=== PATIENT | female | born 1965 | race African-American/Black ===

== ENCOUNTER 2019-01-12 22:12 | Emergency (ER) | payer OTHER, MEDICAID ==
[~2019-01-12] VITALS: Ht 167.6 cm; Wt 73.0 kg
[2019-01-13] MEDS ORDERED: IBUPROFEN 600MG TABLET PO ONE (00:15)
[2019-01-13 01:20] VITALS: BP 155/85
== END 2019-01-13 01:20 | disposition home or self-care (01) ==
LOC: ER 22:12
DX: M25.532 Pain in left wrist (principal)
CPT/HCPCS: 29125; 73110; 99283

== ENCOUNTER 2019-03-07 23:29 | Emergency (ER) | payer OTHER, MEDICAID ==
[~2019-03-07] VITALS: Ht 172.7 cm; Wt 68.0 kg
[2019-03-08] MEDS ORDERED: SODIUM CHLORIDE 0.9% 1,000 ML IV ONE
[2019-03-08 00:35] LABS: CLARITY URINE CLOUDY (CLEAR); COLOR URINE YELLOW (YELLOW); KETONES URINE NEGATIVE (NEGATIVE); LEUKOCYTE ESTERASE URINE NEGATIVE (NEGATIVE); NITRITE URINE NEGATIVE (NEGATIVE); OCCULT BLOOD URINE NEGATIVE (NEGATIVE); PROTEIN URINE 1+ (NEGATIVE); SPECIFIC GRAVITY URINE 1.031 (1.005-1.030); UROBILINOGEN URINE 0.2 E.U./dL (0.2-1.0)
[2019-03-08 00:54] LABS: *BARBITURATES SCREEN URINE NEGATIVE (NEGATIVE)
[2019-03-08 00:55] LABS: *AMPHETAMINES SCREEN URINE NEGATIVE (NEGATIVE); *BENZODIAZEPINES SCREEN URINE NEGATIVE (NEGATIVE); *COCAINE SCREEN URINE NEGATIVE (NEGATIVE); CANNABINOID URINE SCREEN NEGATIVE (NEGATIVE); METHADONE URINE SCREEN NEGATIVE (NEGATIVE); OPIATES URINE SCREEN PRESUMTIVE POSITIVE (NEGATIVE); PHENCYCLIDINE URINE SCREEN NEGATIVE (NEGATIVE)
[2019-03-08 01:22] LABS: BASOPHILS % 0.4 % (0.0-2.0); EOSINOPHILS % 0.1 % (0.0-5.0); HEMATOCRIT. 38.8 % (36.0-48.0); HEMOGLOBIN. 12.8 g/dL (12.0-16.0); LYMPHOCYTES % 12.7 % (20.0-50.0); MEAN CORPUSCULAR HEMOGLOBIN 31.4 pg (28.0-32.0); MEAN CORPUSCULAR VOLUME 95.5 fL (81.0-99.0); MEAN PLATELET VOLUME 7.8 fl (7.4-10.4); MONOCYTES % 3.7 % (2.0-8.0); NEUTROPHILS % 83.1 % (40.0-76.0); PLATELET 347 x1000/uL (130-400); RED BLOOD CELL COUNT 4.07 mill/uL (4.2-5.4); RED CELL DISTRIBUTION WIDTH 12.2 % (11.6-14.6)
[2019-03-08 01:23] LABS: HCG SCREEN INDETERMINATE
[2019-03-08 01:24] LABS: CHLORIDE 105 mEq/L (98-107)
[2019-03-08 01:27] LABS: ETHANOL BLOOD < 10 mg/dL
[2019-03-08 03:27] VITALS: BP 123/84
== END 2019-03-08 03:28 | disposition home or self-care (01) ==
LOC: ER 23:29
DX: R41.82 Altered mental status, unspecified (principal); F11.10 Opioid abuse, uncomplicated; Z98.51 Tubal ligation status
CPT/HCPCS: 36415; 70450; 80053; 80305; 80307; 80320; 80329; 81003; 81025; 84443; 84703; 85025; 93005; 96360; 96361; 99284; J7030; G0480